=== PATIENT | male | born 1960 | race Caucasian/White ===

== ENCOUNTER 2017-06-30 07:40 | Emergency (ER) | payer MEDICAID ==
[~2017-06-30] VITALS: Ht 182.9 cm; Wt 101.9 kg
[2017-06-30] MEDS ORDERED: SODIUM CHLORIDE 0.9% 1,000ML IVBOLUS ONE (08:30)
[2017-06-30] MEDS ORDERED: ACETAMINOPHEN 325 MG TABLET PO ONE (08:30)
[2017-06-30] MEDS ORDERED: ACETAMINOPHEN 500 MG TABLET ONE (08:35)
[2017-06-30 08:58] LABS: HEMATOCRIT 45.1 % (39.2-51.8); WHITE BLOOD COUNT 8.9 x10^3/uL (3.4-10)
[2017-06-30 09:09] LABS: BLOOD UREA NITROGEN 16 mg/dL (7-18)
[2017-06-30 09:20] VITALS: BP 125/86
== END 2017-06-30 10:28 | disposition home or self-care (01) ==
LOC: ED 08:49
DX: J98.01 Acute bronchospasm (principal); F17.210 Nicotine dependence, cigarettes, uncomplicated; J44.9 Chronic obstructive pulmonary disease, unspecified
CPT/HCPCS: 36415; 71020; 80048; 82040; 85025; 99285

== ENCOUNTER 2021-03-25 15:09 | Emergency (ER) | payer MEDICAID ==
[~2021-03-25] VITALS: Ht 182.9 cm; Wt 102.8 kg
--- NOTE | 2021-03-25 16:12 | NUR ---
pt aflutter on monitor 80-120s, denies cp. c/o jaw pain L side and difficulty swallowing. dry mucus membranes, throat not red. no cardiac hx but does not go to md often, smokes ppd, hx dm. as
[2021-03-25] MEDS ORDERED: DIPHENHYDRAMINE 50 MG/ML, 1ML IVPush ONE (16:30)
[2021-03-25] MEDS ORDERED: SODIUM CHLORIDE FLUSH 10ML SYR IVF ONE (16:30)
[2021-03-25] MEDS ORDERED: SODIUM CHLORIDE 0.9% 1,000ML IVBOLUS ONE (16:30)
--- NOTE | 2021-03-25 16:31 | NUR ---
law was in room, piv est labs drawn ns bolus per nov. as
[2021-03-25 16:42] LABS: ALANINE AMINOTRANSFERASE 58 U/L (12-78); ALBUMIN 3.3 g/dL (3.4-5.0); CALCIUM 8.5 mg/dL (8.5-10.1); CREATININE 1.07 mg/dL (0.7-1.3)
[2021-03-25 16:44] LABS: ALKALINE PHOSPHATASE 74 U/L (45-117); BILIRUBIN,TOTAL 0.5 mg/dL (0.2-1.0)
[2021-03-25 16:49] LABS: ANION GAP 5 mmol/L (5-15); CHLORIDE 106 mmol/L (98-107)
[2021-03-25 17:00] LABS: BASOPHILS % (AUTO) 1 % (0-1); EOSINOPHILS % (AUTO) 2 % (1-7); LYMPHOCYTES % (AUTO) 21 % (22-44); MEAN CORPUSCULAR HEMOGLOBIN 28.8 pg (27.5-34.5); MEAN CORPUSCULAR HGB CONC 33.1 g/dL (33.2-36.2); MONOCYTES % (AUTO) 12 % (2-9); NEUTROPHILS % (AUTO) 64 % (42-75); PLATELET COUNT 275 x10^3/uL (130-400); RED BLOOD COUNT 5.06 x10^6/uL (4.38-5.82); RED CELL DISTRIBUTION WIDTH 14.4 % (9.4-14.8)
--- NOTE | 2021-03-25 17:22 | NUR ---
tto and from ct. pt urinated in trash. aflutter. as
[2021-03-25] MEDS ORDERED: OMNIPAQUE 350 MG/ML, 100ML BOTTLE ONE (17:25)
--- NOTE | 2021-03-25 17:54 | NUR ---
tbadm tele, plan dilt. pt sleeping easily arousable. as
[2021-03-25] MEDS ORDERED: DILTIAZEM 5 MG/ML, 5ML IVPush ONE (18:00)
[2021-03-25] MEDS ORDERED: DILTIAZEM 5 MG/ML, 5ML ONE (18:11)
[2021-03-25] MEDS ORDERED: DIPHENHYDRAMINE 50 MG/ML, 1ML ONE (18:16)
[2021-03-25] MEDS ORDERED: METF500T17 PO (18:33)
--- NOTE | 2021-03-25 18:48 | NUR ---
REPORT RECEIVED FROM VANESSA MOSCOSO
--- NOTE | 2021-03-25 18:49 | NUR ---
pt now [facility] home. pt received iv md heri made aware. pt can take cab home. report to aline hale. as
[2021-03-25 19:07] VITALS: BP 153/91
--- NOTE | 2021-03-25 19:07 | NUR ---
Patient given discharge instructions and they have confirmed that they understand the instructions. Patient ambulatory with steady gait. NAD, all questions answered appropriately, denies additional needs at this time. No personal belongings left in room after discharge.
== END 2021-03-25 19:28 | disposition home or self-care (01) ==
LOC: ED 16:00
DX: I48.92 Unspecified atrial flutter (principal); R68.84 Jaw pain; E11.9 Type 2 diabetes mellitus without complications; J44.9 Chronic obstructive pulmonary disease, unspecified; I48.91 Unspecified atrial fibrillation
CPT/HCPCS: 36415; 70491; 80053; 83735; 85025; 93005; 96361; 96374; 96375; 99285; J1200; J7030; Q9967

== ENCOUNTER 2021-04-04 15:32 | Emergency (ER) | payer MEDICAID ==
[~2021-04-04] VITALS: Ht 182.9 cm; Wt 104.0 kg
[~2021-04-04 15:32] MED LIST: METF500T17 PO
[2021-04-04 16:19] VITALS: BP 132/78
== END 2021-04-04 18:06 ==
LOC: ED 15:49
DX: K02.9 Dental caries, unspecified (principal); J44.9 Chronic obstructive pulmonary disease, unspecified; E11.9 Type 2 diabetes mellitus without complications
CPT/HCPCS: 99283

== ENCOUNTER 2021-05-05 13:34 | Emergency (ER) | payer MEDICAID ==
[~2021-05-05] VITALS: Ht 182.9 cm; Wt 100.8 kg
[2021-05-05 13:52] VITALS: BP 129/65
[2021-05-05] MEDS ORDERED: RIVA10TA2 PO (14:18)
--- NOTE | 2021-05-05 14:18 | NUR ---
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 Awaiting PA assessment now.
== END 2021-05-05 14:44 | disposition home or self-care (01) ==
LOC: ED 14:42
DX: K08.89 Other specified disorders of teeth and supporting structures (principal)
CPT/HCPCS: 99283